=== PATIENT | female | born 1965 | race Caucasian/White ===

== ENCOUNTER 2022-04-12 22:29 | Emergency (ER) | payer OTHER | END 2022-04-12 23:09 | disposition home or self-care (01) | LOC: MADERS 22:29 | DX: T81.30XA Disruption of wound, unspecified, initial encounter (principal); I10 Essential (primary) hypertension; Z79.899 Other long term (current) drug therapy | CPT/HCPCS: 99283 ==

== ENCOUNTER 2022-07-02 13:00 | Emergency (ER) | payer OTHER ==
[2022-07-02] MEDS ORDERED: Dexamethasone 4 MG TAB ONE (14:37)
== END 2022-07-02 14:45 | disposition home or self-care (01) ==
LOC: MADERS 13:00
DX: S51.851A Open bite of right forearm, initial encounter (principal); I10 Essential (primary) hypertension; Z79.899 Other long term (current) drug therapy; W57.XXXA Bitten or stung by nonvenomous insect and other nonvenomous arthropods, initial encounter
CPT/HCPCS: 99282; J8540

== ENCOUNTER 2025-02-23 16:16 | Emergency (ER) | payer OTHER | END 2025-02-23 17:43 | disposition home or self-care (01) | LOC: MADERS 16:16 | DX: S40.021A Contusion of right upper arm, initial encounter (principal); R07.89 Other chest pain; I10 Essential (primary) hypertension; E78.5 Hyperlipidemia, unspecified; Z79.899 Other long term (current) drug therapy; W18.31XA Fall on same level due to stepping on an object, initial encounter | CPT/HCPCS: 99284 ==